=== PATIENT | female | born 1950 | race American Indian/Alaskan Native ===

== ENCOUNTER 2017-02-04 10:57 | Day surgery (SDC) | payer MEDICARE ==
[2017-02-04] MEDS ORDERED: HEPARIN 10,000 UNITS/10 ML ONE (12:16)
[2017-02-04] MEDS ORDERED: ANCEF/STERILE WATER 2 GM/20 ML 2 GM/20 ML SYRINGE IV ONE (12:17)
[2017-02-04] MEDS: SUBLIMAZE ONE ×2 (12:27→12:37)
[2017-02-04] MEDS: VERSED ONE ×2 (12:27→12:37)
[2017-02-04] MEDS: XYLOCAINE 2% INFILTRATI ONE ×2 (12:29→12:37)
[2017-02-04] MEDS: NACL 0.9% 250ML 250 ML ONE ×2 (12:30→12:35)
[2017-02-04] MEDS: HEPARIN/NS 5000 UNIT/500ML(CATH LAB) 500 ML IR ONE ×2 (12:30→12:35)
[2017-02-04] MEDS: ANCEF/STERILE WATER 2 GM/20 ML 2 GM/20 ML SYRINGE IV NR ×2 (12:31→12:37)
--- NOTE | 2017-02-04 13:58 | Short Stay Summary ---
Short Stay Documentation Date of service: 02/04/17 - History Principal diagnosis: ESRD Past Medical History: dialysis, ESRD Past Surgical History: Other (LUE graft) Social history: no significant social history - Allergies and Medications Current Medications: Allergies No Known Allergies Allergy (Verified 11/11/14 12:41) Home Medications Medication Instructions Recorded Confirmed Last Taken Type Levothyroxine [Synthroid] 100 mcg PO QAM 12/06/12 02/04/17 02/03/17 History PARoxetine [Paxil] 40 mg PO DAILY 12/06/12 02/04/17 02/03/17 History Pantoprazole [Protonix TAB] 40 mg PO QDAY 12/06/12 02/04/17 02/03/17 History HYDROcodone/APAP 7.5-325 [[place] 1 - 2 each PO Q8HR PRN #30 tablet 12/04/1302/0411/09/14 Rx 7.5-325 mg TAB] Cinacalcet [Sensipar] 30 mg PO DAILY 11/11/14 02/04/17 02/03/17 History Amiodarone HCl [Amiodarone HCl] 200 mg PO BID 02/04/17 02/04/17 02/03/17 History Apixaban [Eliquis] 5 mg PO BID 02/04/17 02/04/17 02/03/17 History Ferric Citrate (Nf) [Auryxia (Nf)] 2 tab PO QAC 02/04/17 02/04/17 02/03/17 History Midodrine HCl [Midodrine HCl] 5 mg PO TID 02/04/17 02/04/17 02/03/17 History Active Medications Cefazolin Sodium (Ancef/Sterile Water 2 Gm/20 Ml) 2 gm in 20 mls @ 80 mls/hr IV PREOP NR PRN Reason: Protocol Stop: 02/04/17 23:59 Last Admin: 02/04/17 12:37 Dose: 20 mls - Physical exam General appearance: no acute distress Integumentary: no rash HEENT: Atraumatic Lungs: Normal air movement Breasts: deferred Heart: Regular rate Gastrointestinal: normal Female Genitourinary: deferred Rectal Exam: deferred Extremities: no ischemia - Brief post op/procedure progress note Date of procedure: 02/04/17 Pre-op diagnosis: ESRD Post-op diagnosis: same Procedure: KLUE FGA and venop[lasty Anesthesia: local Surgeon: SANDRA PRATER Estimated blood loss: minimal Pathology: none Condition: stable - Disposition Condition at discharge: Good Disposition: DC-01 TO HOME OR SELFCARE Short Stay Discharge Plan Activity: advance as tolerated Weight Bearing Status: Weight Bear as Tolerated Diet: renal Wound: keep clean and dry, per your surgeon's advice Follow up with: FRANKIE AGUILAR MD [Primary Care Provider] - 7 Days
--- NOTE | 2017-02-04 14:13 | Operative Report ---
Operative Report Operative Report: EXAM: LEFT UPPER EXTREMITY FISTULOGRAM, VENOPLASTY CLINICAL INDICATION: PATIENT WITH DECREASED PULSATILITY AND PROLONGED BLEEDING TIMES FOLLOWING DIALYSIS ACCESS DATE: 02/04/2017 PROCEDURE: Following an explanation of the risks, benefits and alternatives; written informed consent was obtained. The patient was brought to the angiographic suite and placed in supine position on the examination table. Initial evaluation of the arm demonstrated pulsatility throughout the graft. There was palpable thrill as well. The patient's left upper arm was prepped and draped in the usual sterile fashion. Access was obtained in the graft directed towards the venous outflow using a 7 cm 21-gauge needle. A 0.018 mandrel wire was then advanced through the needle and the needle exchanged for a micro-sheath. The 0.018 guidewire was exchanged for a 0.035 guidewire and the micro-sheath exchanged for a 7 [place] vascular sheath. Contrast was injected to the vascular sheath and imaging obtained at multiple locations. There is multifocal stenoses throughout the distal aspect of the graft. Proximal to previously placed stents, additional stenoses are identified. The stenoses are 40-50% throughout the course. Central venography was performed which demonstrates widely patent central veins although there is decreased cardiac output with reflux into the contralateral internal jugular vein. Venoplasty of the stenoses were performed using an 8 mm balloon insufflated at multiple locations for up to 20 lucy. Post venoplasty imaging demonstrated brisk flow throughout the graft into the central veins. A palpable thrill was present throughout the entirety of the graft. The guidewire and sheath was removed and hemostasis achieved using 3-0 Vicryl suture. A sterile dressing was then applied. The patient tolerated the procedure well. There were no immediate post procedure complications. Conscious sedation was performed under the guidance of radiologic nursing. Continuous cardiopulmonary monitoring was utilized. IMPRESSION: 1) Left upper extremity fistulogram demonstrating multifocal 40-50% stenosis throughout the distal aspect of the graft extending into the venous outflow. 2) Venoplasty as described with residual less than 20% stenosis and brisk flow and a palpable thrill throughout the graft.
[2017-02-04 14:27] VITALS: BP 114/60
== END 2017-02-04 14:30 | disposition home or self-care (01) ==
LOC: CATHLABREC 10:57
PROVIDERS: ATTEND Radiology Diagnostic Radiology
DX: T82.858A Stenosis of other vascular prosthetic devices, implants and grafts, initial encounter (principal); N18.6 End stage renal disease; Y83.9 Surgical procedure, unspecified as the cause of abnormal reaction of the patient, or of later complication, without mention of misadventure at the time of the procedure; Z79.899 Other long term (current) drug therapy
CPT/HCPCS: 36415; 36902; 84132; 99156; 99157; C1725; C1751; C1769; C1894; J0690; J1644; J2250; J3010; J7050; Q9967